=== PATIENT | female | born 1940 | race Caucasian/White ===

== ENCOUNTER 2019-03-19 12:24 | Emergency (ER) | payer MEDICARE, OTHER, SELFPAY ==
[2019-03-19 12:29] VITALS: BP 141/74; PULSE 55; RESP 16; TEMP 36.6; O2SAT 97; BMI 28.0
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
[2019-03-19 14:58] LABS: Basophils % 0.5 %; Eosinophils # 0.2 10^3/uL (0.0-0.8); Eosinophils % 2.7 %; Hematocrit 39.6 % (37.0-47.0); Lymphocytes % 15.2 %; Mean Corpuscular HGB Conc 32.8 g/dL (30.0-36.0); Mean Corpuscular Hemoglobin 28.4 pg (28.0-34.0); Mean Corpuscular Volume 86.5 fL (81-99); Mean Platelet Volume 10.2 fL (7.4-10.4); Monocytes # 0.5 10^3/uL (0.2-0.9); Neutrophils # 4.9 10^3/uL (1.8-7.7); Nucleated Red Blood Cells % 0 %; Platelet Count 179 10^3/cmm (130-400); Red Blood Count 4.58 10^6/uL (4.1-5.3); Red Cell Distribution Width 12.8 % (12.1-15.1); White Blood Count 6.6 10^3/uL (4.0-10.0)
[2019-03-19 15:18] LABS: Alanine Aminotransferase 15 U/L (0-33); Albumin Level 4.5 g/dL (3.5-5.2); Alkaline Phosphatase 46 IU/L (35-105); Anion Gap 16.4 (5-19); Aspartate Amino Transferase 22 U/L (0-32); Blood Urea Nitrogen 15 mg/dL (8-23); Calcium 10.3 mg/Dl (8.8-10.2); Carbon Dioxide 27 mmol/L (22-29); Chloride 92 mmol/L (98-107); Globulin 2.8 g/dL (1.3-4.6); Glucose 90 mg/dL (74-106); Potassium 3.4 mmol/L (3.5-5.1); Sodium 132 mmol/L (136-145); Total Bilirubin 0.4 mg/dL (0.15-1.2); Total Protein 7.3 g/dL (6.6-8.7)
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
[2019-03-19] MEDS: HYDROcodone-acetaminophen 5-325 mg Tablet 1 TAB PO (16:23)
[2019-03-19 17:28] VITALS: RESP 16; TEMP 36.6; O2SAT 97
== END 2019-03-19 17:25 ==
PROVIDERS: Emergency Provider Family Medicine; Family Provider Family Medicine
DX: S32.020A Wedge compression fracture of second lumbar vertebra, initial encounter for closed fracture (principal); V49.9XXA Car occupant (driver) (passenger) injured in unspecified traffic accident, initial encounter; E78.5 Hyperlipidemia, unspecified
CPT/HCPCS: 36415; 72040; 72070; 72100; 72131; 80053; 85025; 99281; 99284

== ENCOUNTER 2019-08-16 18:44 | Emergency (ER) | payer MEDICARE, OTHER, SELFPAY ==
[2019-08-16 18:58] VITALS: BP 103/48; PULSE 66; RESP 18; TEMP 36.8; O2SAT 94; BMI 28.1
[2019-08-16 19:26] LABS: Basophils % 0.4 %; Eosinophils # 0.1 10^3/uL (0.0-0.8); Eosinophils % 1.3 %; Hematocrit 40.5 % (37.0-47.0); Hemoglobin 13.3 g/dL (11.5-15.3); Lymphocytes # 0.4 10^3/uL (0.8-4.8); Lymphocytes % 4.3 %; Mean Corpuscular HGB Conc 32.8 g/dL (30.0-36.0); Mean Corpuscular Hemoglobin 29.5 pg (28.0-34.0); Mean Corpuscular Volume 89.8 fL (81-99); Monocytes # 0.7 10^3/uL (0.2-0.9); Monocytes % 7.7 %; Neutrophils # 7.3 10^3/uL (1.8-7.7); Neutrophils % 85.9 %; Nucleated Red Blood Cells % 0 %; Platelet Count 144 10^3/cmm (130-400); Red Blood Count 4.51 10^6/uL (4.1-5.3); White Blood Count 8.5 10^3/uL (4.0-10.0)
[2019-08-16 19:39] LABS: Alanine Aminotransferase 15 U/L (0-33); Albumin Level 4.1 g/dL (3.5-5.2); Alkaline Phosphatase 42 IU/L (35-105); Anion Gap 19.1 (5-19); Aspartate Amino Transferase 19 U/L (0-32); Blood Urea Nitrogen 13 mg/dL (8-23); Calcium 9.5 mg/dL (8.5-10.5); Carbon Dioxide 24 mmol/L (22-29); Chloride 92 mmol/L (98-107); Globulin 2.9 g/dL (1.3-4.6); Glucose 102 mg/dL (65-115); Osmolality Calculated 270 mOsm/kg (285-295); Potassium 3.1 mmol/L (3.5-5.1); Sodium 132 mmol/L (136-145); Total Bilirubin 0.4 mg/dL (0.15-1.2)
[2019-08-16 20:10] VITALS: BP 111/43; PULSE 88; RESP 16; O2SAT 97
--- NOTE | 2019-08-16 20:15 | ECG_ITS ---
Measurements Intervals [place] Rate: 63 P: 60 WI: 161 QRS: 2 QRSD: 102 T: -12 QT: 435 QTc: 446 SINUS RHYTHM NONSPECIFIC T-WAVE ABNORMALITY No previous ECG available for comparison Electronically Signed On 08-17-2019 20:58:49 CDT by Amara Roa M.D. [email or web address]
[2019-08-16] MEDS: lactated ringers 1,000 ML 1000 ML IV (20:20)
--- NOTE | 2019-08-16 20:28 | PC.NURSE ---
EKG done at 2025 and shown to ER doctor
[2019-08-16 20:33] LABS: Ketone (Acetest) Serum Negative (Negative)
[2019-08-16 20:33] LABS: Urine Appearance SL Hazy (CLEAR); Urine Color Yellow (Yellow); pH Urine 7 (5-7)
[2019-08-16 20:34] LABS: Add Urine Microscopic? YES; Bilirubin Urine 1+ (NEGATIVE); Blood Urine Neg (Negative); Glucose Urine UA Norm (Normal); Ketones Urine 1+ (Negative); Leukocyte Esterase Urine 1+ (Negative); Nitrate Urine Negative (Negative); Protein Urine Neg (Negative); Urobilinogen Urine 4 mg/dL (Negative)
[2019-08-16 20:35] LABS: Bacteria Urine 1+; RBC Urine 0-4 /hpf (0-2); Transitional Epi Cells Urine 0-4 /hpf; WBC Urine 40-55 /hpf (0-5)
[2019-08-16 20:36] LABS: Add Urine Culture? Yes; Mucus Urine 2+
[2019-08-16 20:42] LABS: Lipase 34 U/L (13-60); Troponin(5th) Baseline 10 ng/L (0-10)
[2019-08-16 21:25] LABS: Troponin 5 2HR 10.01 ng/L (0-10); Troponin 5 2HR Delta 0.01 ABS# (0-10)
[2019-08-16] MEDS: cefTRIAXone 1,000 MG in sodium chloride 0.9% (plus) 50 ML 100 MG IV (21:55)
[2019-08-16 22:00] VITALS: BP 106/50; PULSE 63; RESP 18; O2SAT 95
[2019-08-16] MEDS: potassium chloride oral liq 20 mEq/15 mL UDC 40 MEQ PO (22:01)
--- NOTE | 2019-08-16 22:15 | ECG_ITS ---
Measurements Intervals [place] Rate: 63 P: 25 DC: 102 QRS: -8 QRSD: 106 T: -21 QT: 450 QTc: 461 SINUS RHYTHM WITH SHORT DC INTERVAL MODERATE T-WAVE ABNORMALITY, CONSIDER ANTEROLATERAL ISCHEMIA [-0.1+ mV T WAVE IN V3-V6] MODERATE T-WAVE ABNORMALITY, CONSIDER INFERIOR ISCHEMIA [-0.1+ mV T WAVE IN II/aVF] No previous ECG available for comparison Electronically Signed On 08-17-2019 21:09:17 CDT by Amara Roa M.D. [email or web address]
--- NOTE | 2019-08-16 22:23 | PC.NURSE ---
EKG done at 2220 and shown to ER doctor
[2019-08-16 22:53] VITALS: BP 121/58; PULSE 71; RESP 20; O2SAT 96
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
== END 2019-08-16 22:55 | disposition home or self-care (01) ==
PROVIDERS: Nurse Practitioner Family; Emergency Provider Emergency Medicine
DX: N30.00 Acute cystitis without hematuria (principal); E87.6 Hypokalemia; E78.5 Hyperlipidemia, unspecified
CPT/HCPCS: 12345; 36415; 80053; 81001; 82009; 83690; 84484; 85025; 87086; 93005; 96365; 96367; 99283; 99284; J0696

== ENCOUNTER → 2019-12-10 08:58 | Outpatient (BNVA) | payer MEDICARE, OTHER, SELFPAY | PROVIDERS: Referring Provider Family Medicine; Visit Provider Orthopaedic Surgery | DX: M25.531 Pain in right wrist (principal); S52.511A Displaced fracture of right radial styloid process, initial encounter for closed fracture; X58.XXXA Exposure to other specified factors, initial encounter | CPT/HCPCS: 73110 ==

== ENCOUNTER 2024-04-16 20:26 | Emergency (ER) | payer MEDICARE, OTHER, SELFPAY ==
[2024-04-16 20:54] VITALS: BP 136/79; PULSE 84; RESP 17; TEMP 36.6; O2SAT 98; BMI 25.0
[2024-04-16 21:41] LABS: Influenza A NEGATIVE (Negative); Influenza B NEGATIVE (Negative); Respiratory Syncytial Virus Ce NEGATIVE (Negative); SARS-CoV-2 PCR NEGATIVE (Negative)
== END 2024-04-17 00:45 | disposition left against medical advice (07) ==
PROVIDERS: Emergency Medicine; Emergency Provider Family Medicine; PCP Family Medicine
DX: Z53.21 Procedure and treatment not carried out due to patient leaving prior to being seen by health care provider (principal)
CPT/HCPCS: 87637